=== PATIENT | male | born 1950 | race Caucasian/White ===

== ENCOUNTER → 2021-02-25 13:09 | Outpatient (CLI) | payer MEDICARE, OTHER, SELFPAY ==
--- NOTE | 2021-02-25 13:16 | DI.MRI.S_ITS ---
PROCEDURE: MR SHOULDER RT WO CON INDICATIONS: RIGHT SHOULDER PAIN TECHNIQUE: The patient declined intra-articular gadolinium contrast injection. Therefore, non oblique coronal T2 fast spin echo with fat saturation, oblique sagittal T1 spin echo and T2 fast spin echo with fat saturation, axial T1 spin echo and T2 fast spin echo with fat saturation through the shoulder. COMPARISON: None. FINDINGS: Rotator cuff: Supraspinatus tendinopathy with partial thickness articular and bursal sided tear involving the junction of the critical zone and footprint. No definite full-thickness defect seen. Infraspinatus tendinopathy and mild thickening. Teres minor appears intact. Mild subscapularis tendinopathy and thickening. No atrophy of the rotator cuff muscles seen. Bones and bursae: No bone marrow contusions or fractures. Moderate acromioclavicular joint degeneration. Acromion demonstrates conventional anatomy, without an os acromiale. Moderate glenohumeral osteoarthritis also noted. Mild subacromial-subdeltoid bursitis. 2 mm loose body seen in the axillary pouch. Capsule and soft tissues: Labrum: Extensive posterior labral tear is seen. Posterior subluxed appearance of the humeral head relative to the glenoid raising the possibility of microinstability. There is adjacent segmental sclerosis spurring and cystic change. There is also associated near full-thickness chondral loss. Ill-defined superior labral tear also noted with bucket-handle appearance on image 11/7. Ill-defined blunting of the anteroinferior labrum. Glenohumeral ligaments: Inferior and superior glenohumeral ligaments are intact. Biceps tendon: Long head of the biceps tendon intact. Rotator interval: Normal signal intensity. Coracohumeral ligament: Intact. IMPRESSION: Partial-thickness rotator cuff tear as above. Mild subacromial-subdeltoid bursitis Chronic severe posterior labral tear. Posterior subluxed appearance of the humeral head relative to the glenoid which raises the possibility of microinstability. Additional tear of the superior labral segment with bucket-handle appearance. 2 mm loose body in the axillary pouch. Dictated by: Gopal Majano M.D. on 02/25/2021 at 15:08 Approved by: Gopal Majano M.D. on 02/25/2021 at 15:18
== END ==
PROVIDERS: Family Provider Internal Medicine; PCP Internal Medicine; Referring Provider Pain Medicine Pain Medicine; Visit Provider Pain Medicine Pain Medicine
DX: M25.511 Pain in right shoulder (principal); M75.111 Incomplete rotator cuff tear or rupture of right shoulder, not specified as traumatic; M75.51 Bursitis of right shoulder; S43.491A Other sprain of right shoulder joint, initial encounter
CPT/HCPCS: 73221

== ENCOUNTER → 2021-08-21 14:08 | Outpatient (CLI) | payer MEDICARE, SELFPAY ==
[2021-08-21 14:55] LABS: Add Manual Diff / Slide Review NO; Basophils Absolute Auto 100 /uL (0-100); Basophils Percent Auto 0.8 % (0-2); Eosinophils Absolute Auto 100 /uL (0-450); Eosinophils Percent Auto 1.1 % (2-4); Hematocrit 44.5 % (41-53); Hemoglobin 15.6 g/dL (13.5-17.5); Lymphocytes Absolute Auto 1300 /uL (1100-4500); Lymphocytes Percent Auto 18.2 % (25-40); Mean Corpuscular Hemoglobin 30.5 PG (26-34); Mean Corpuscular Volume 87.1 fL (80-100); Monocytes Absolute Auto 600 /uL (0-900); Monocytes Percent Auto 9.1 % (3-14); Neutrophils Absolute Auto 5000 /uL (1500-7000); Neutrophils Percent Auto 70.8 % (50-75); Platelet Count 152 X10^3/uL (150-400); Red Blood Cell Count 5.11 X10^6/uL (4.5-5.9); White Blood Cell Count 7.1 X10^3/uL (4.5-11.0)
[2021-08-21 15:10] LABS: BUN Creatinine Ratio 21.4 (6-22); Blood Urea Nitrogen 18 mg/dL (9-20); Calcium 9.3 mg/dL (8.4-10.2); Carbon Dioxide 26 mmol/L (22-32); Chloride 106 mmol/L (98-107); Estimated Glomerular Filt Rate > 60 mL/min (>60); Glucose 107 mg/dL (80-110); HEMOLYSIS 42 (0-50); Potassium 4.5 mmol/L (3.4-5.1); Sodium 141 mmol/L (137-145)
== END ==
LOC: LAB 14:17 → RAD 14:24
PROVIDERS: Family Provider Internal Medicine; PCP Internal Medicine; Referring Provider Orthopaedic Surgery; Visit Provider Orthopaedic Surgery
DX: Z01.818 Encounter for other preprocedural examination (principal); Z01.812 Encounter for preprocedural laboratory examination; R73.9 Hyperglycemia, unspecified; M25.511 Pain in right shoulder
CPT/HCPCS: 36415; 80048; 83036; 85025; 93005

== ENCOUNTER → 2021-09-09 11:43 | Outpatient (CLI) | payer MEDICARE, SELFPAY ==
[2021-09-09 15:39] LABS: COVID19 -Nasal RAPID Negative (Negative)
== END ==
PROVIDERS: Family Provider Internal Medicine; PCP Internal Medicine; Visit Provider Family Medicine Sleep Medicine
DX: Z20.822 Contact with and (suspected) exposure to COVID-19 (principal)
CPT/HCPCS: 87635; C9803

== ENCOUNTER 2021-09-11 10:47 | Day surgery (SDC) | payer MEDICARE, SELFPAY ==
[2021-09-04 13:53] VITALS: BMI 36.3
[2021-09-11] VITALS (16 sets, daily range): BP systolic 115–160; BP diastolic 67–92; PULSE 66–94; RESP 10–17; TEMP 35.9–36.6; O2SAT 90–98; BMI 36.3
--- NOTE | 2021-09-11 06:00 | DI.RAD.S_ITS ---
PROCEDURE: XR SHOULDER RT 1V INDICATIONS: prosthesis placement TECHNIQUE: 2 views of the shoulder were acquired. COMPARISON: [facility] [place], [place], XR SHOULDER 2+ VIEWS RIGHT, 09/03/2021, 16:27. FINDINGS: Bones: Expected postoperative alignment of right shoulder arthroplasty. No periprosthetic fractures or evidence of loosening/infection. Soft tissues: Adjacent soft tissue swelling and postsurgical gas. IMPRESSION: Expected immediate postoperative appearance of right shoulder arthroplasty. Dictated by: Flaco ARCHER Interpreted: Nicki Milian MD on 09/11/2021 at 16:18 Transcribed by: AFTAB on 09/11/2021 at 16:18 Approved by: Nicki Milian M.D. on 09/11/2021 at 17:11
[2021-09-11] MEDS: ACETAMINOPHEN 325 MG TABLET 975 MG PO (12:24)
[2021-09-11] MEDS: PREGABALIN 75 MG CAPSULE PO (12:24)
[2021-09-11] MEDS: CELECOXIB 200 MG CAPSULE PO (12:27)
[2021-09-11] MEDS: LACTATED RINGERS 1,000 ML 84 ML IV (12:39)
--- NOTE | 2021-09-11 12:50 | PM.PREOP ---
Pre-operative Note COVID-19 COVID-19 status: Negative Result date/Date tested (Pos, Neg/Pending): 09/09/21 Interval Note History & Physical reviewed/Exam performed by Physician: Yes Changes to H&P: No
[2021-09-11] MEDS: CEFAZOLIN 2 GM/20 ML SYRINGE IV (14:06)
[2021-09-11] MEDS: TRANEXAMIC ACID 1,000 MG VIAL 1000 MG INJ (14:07)
--- NOTE | 2021-09-11 14:30 | SUR.OPER ---
Beach chair with Kelsien/El shoulder positioner. Lower body on padded OR bed. Head in foam padded head cradle, secured with straps. Non-operative arm secured <90 degrees abduction. Torso taped padded with towel, 2x Pillow under knees. Safety belt at thigh. Cloth tape over blanket over lower legs. Tape across lower legs. As directed and approved by surgeon. Neck alignment approved by anesthesia.
[2021-09-11] MEDS: BUPIVACAINE 0.5% (PF) 30 ML, EPINEPHrine 0.15 MG INJ (14:43)
[2021-09-11] MEDS: THROMBIN (RECOMBINANT) 5,000 UNIT VIAL 5000 UNIT TOP (14:44)
--- NOTE | 2021-09-11 16:00 | PM.OP.1 ---
Operative Date/Time/Diagnoses Date of procedure: 09/11/21 Time of procedure: 16:01 Pre-op diagnosis: Right shoulder osteoarthritis Post-op diagnosis: same Procedure & Clinicians Procedure: Right total shoulder replacement Same procedure as scheduled: Yes Indications: The patient has had progressively worsening right shoulder pain with radiographic changes consistent with arthritis. Non-operative management has failed and the patient has requested total shoulder replacement. The risks, benefits and alternatives to surgery were discussed with the patient prior to proceeding. Risks discussed included, but were not limited to, failure to relieve pain, stiffness, infection, nerve damage, deep venous thrombosis, pulmonary embolism, stroke, coma, heart attack, permanent paralysis and , as well as the potential need for eventual revision of the prosthetic. Surgeon: Yemi Jena Engineering Team Supervisor: Peter Zimmerman Click Yes if Unassisted: No Anesthesia Type: General, Peripheral nerve block and Local Operative Notes Findings: Moderately severe osteoarthritis of the glenohumeral joint with small humeral osteophyte. Complete bone loss on the humeral head. Closure Type: primary Specimen(s): none sent Prosthetic devices, grafts, tissues, transplants, or devices: Implants used in this procedure were manufactured by the [employer] and included a canal sparing total shoulder prosthetic with a 54 mm all polyethylene pegged glenoid, a size 3 porous-coated humeral stem and a 54 mm x 20 mm humeral head with neutral neck. In addition an Arthrex speed bridge closure system was used. Applied: implant(s) Estimated Blood Loss (mL): 150 Blood products transfused: none Procedure in detail: The patient was seen in the pre-operative area, where the patient identified the right shoulder as the operative site and this was marked with my initials. The patient received pre-operative antibiotics, underwent an interscalene block, and was taken to the operating room and placed on the operative table in the supine position. After satisfactory anesthesia, a full ?time out? was performed. The patient was repositioned in the ?beach chair? position using a dedicated positioner. All pressure points were well padded, and the knees were slightly bent to prevent tension on the sciatic nerves. The right arm was prepared from the fingers to the base of the neck with ChloroPrep in the usual fashion and draped through sterile drapes. An approximately 15 cm incision was created, starting at the clavicle above the coracoid process and extended towards the deltoid insertion. The deltopectoral interval was used to access the shoulder. The cephalic vein was taken medially. A self retaining retractor was placed. The ?three sisters? were identified and cauterized. The axillary nerve was palpated and protected throughout the case. The biceps was released from its groove and tenodesed over the top of the pectoralis major tendon. The subscapularis was released from the lesser tuberosity with a subscapularis peel and tagged for later repair. The shoulder was dislocated and a cutting guide was used for the proximal humeral osteotomy in 30 degrees of retroversion. A trial humeral head was placed to center the guide pin. The collar Reamer was used followed by the central Reamer. The size 3 broach was then placed. A proximal humeral protector was then placed. We then removed the self-retaining retractor and placed retractors to access the glenoid. The subscapularis was released with a ?360 degree release? with care being taken to protect the axillary nerve with the inferior portion of this procedure. The remnant of labrum and biceps stump were removed. The appropriate size reamer was chosen with the glenoid sizer, and the guide pin placed. The glenoid was appropriately reamed. The guide for the peripheral holes was used and the center hole enlarged. The trial glenoid was placed with good stability. We then cemented the final implant into place after irrigating the peg holes and drying them with thrombin-soaked Gelfoam. We returned our attention to the humerus, a trial humeral head was applied and a trial reduction performed. Stability was checked with 50% posterior translation with spontaneous reduction, 45? external rotation at the side with the subscapularis held in the repaired position and 70? of internal rotation in the ?scare tejon position. This was felt to be satisfactory and the appropriate implants were opened. The humeral prosthetic was impacted into the humerus. The humeral head was applied when the stem was still slightly proud and impacted to both seat the head and fully seat the stem. The joint was relocated one final time. The joint was irrigated and the subscapularis repaired using the speed bridge system with 2 anchors placed just below the humeral osteotomy and 2 more laterally. The medial sutures were tied to reinforce the medial row. The top of the subscapularis was closed to the leading edge of the supraspinatus with a figure of 8 #2 TiCron to close the rotator interval. The deltopectoral interval was closed with interrupted 0 Vicryl. The subcutaneous layer was closed with 3-0 Vicryl, and the skin with a running 3-0 V-Lock suture and Dermabond. An Aquacel Ag dressing was applied, the patient?s arm was placed in a sling, and the patient was taken to recovery having tolerated the procedure well. Complications: none Post-operative Condition: stable Disposition: PACU Plan for aftercare: The patient will be maintained on a standard total shoulder replacement protocol with passive range of motion limited to 90 degrees forward flexion, 0 degrees external rotation at the side, 0 degrees abduction and internal rotation to the body. The patient will receive aspirin and sequential compression devices for DVT prophylaxis. The patient will be discharged home when safe for the home environment, likely tomorrow.
[2021-09-11] MEDS: fentaNYL 100 MCG/2 ML INJ IV (16:16)
--- NOTE | 2021-09-11 16:53 | SUR.PHASEI ---
VSS, report called to Yoni Leslie RN. Patient has been sleeping since he was medicated IV. Stable.
[2021-09-11] MEDS: OXYCODONE IR 10 MG TABLET PO ×2 (17:36→23:17)
[2021-09-11] MEDS: LACTATED RINGERS 1,000 ML 100 ML IV (17:39)
[2021-09-11] MEDS: ACETAMINOPHEN 325 MG TABLET 650 MG PO ×2 (18:47→23:18)
--- NOTE | 2021-09-11 19:08 | SUR.PHASEI ---
1700 late entry SN & RN maintained frequent monitoring of the patient's pain level. After the IV medication, he slept for 1/2 hour until we were preparing to transport him to the floor. Stable and comfortable upon transfer.
--- NOTE | 2021-09-11 19:23 | PC.NURSE ---
Pt arrived to the unit from OR around 1700. Pt is slightly sleepy but answers questions fine. Pt is AxOx4, VSS except SpO2 goes down when he asleep.. Pt is now on 2L O2 with NC and pt uses cpap machine at night. Pt c/o pain R shoulder 12/11 so pt recieved Oxy IR 10mg PO with good effect. Pt went to the toiled and voided. No n/v and ate some dinner. Otherwise, no issue. Continue monitor.
[2021-09-11] MEDS: clonazePAM 0.5 MG TABLET 1.5 MG PO (20:44)
[2021-09-11] MEDS: ASPIRIN EC 81 MG TABLET PO (20:44)
[2021-09-11] MEDS: MORPHINE ER 15 MG TABLET PO (20:45)
[2021-09-11] MEDS: DOCUSATE 100 MG CAPSULE PO (20:45)
[2021-09-11] MEDS: ZOLPIDEM 5 MG TABLET PO (20:46)
[2021-09-11] MEDS: IBUPROFEN 400 MG TABLET PO (23:17)
[2021-09-12 00:10] VITALS: BP 148/86; PULSE 93; RESP 17; TEMP 36.1; O2SAT 93
[2021-09-12 03:35] VITALS: BP 126/77; PULSE 75; RESP 16; TEMP 36.3; O2SAT 93
[2021-09-12] MEDS: OXYCODONE IR 10 MG TABLET PO ×2 (03:52→12:49)
[2021-09-12 06:02] LABS: Hematocrit 41.2 % (41-53); Hemoglobin 14.3 g/dL (13.5-17.5)
[2021-09-12 07:45] VITALS: BP 122/65; PULSE 66; RESP 18; TEMP 36.3; O2SAT 91
--- NOTE | 2021-09-12 08:03 | P.DS_ITS ---
History of Present Illness History of Present Illness Date Patient Seen: 09/12/21 Time Patient Seen: 08:03 Chief complaint: RT TSA *OPB* Narrative: Operative Date/Time/Diagnoses Date of procedure: 09/11/21 Time of procedure: 16:01 Pre-op diagnosis: Right shoulder osteoarthritis Post-op diagnosis: same Procedure & Clinicians Procedure: Right total shoulder replacement Same procedure as scheduled: Yes Indications: The patient has had progressively worsening right shoulder pain with radiographic changes consistent with arthritis. Non-operative management has failed and the patient has requested total shoulder replacement. The risks, benefits and alternatives to surgery were discussed with the patient prior to proceeding. Risks discussed included, but were not limited to, failure to relieve pain, stiffness, infection, nerve damage, deep venous thrombosis, pulmonary embolism, stroke, coma, heart attack, permanent paralysis and , as well as the potential need for eventual revision of the prosthetic. Surgeon: Yemi Jean Bale Stacker: Peter Zimmerman Click Yes if Unassisted: No Anesthesia Type: General, Peripheral nerve block and Local Operative Notes Findings: Moderately severe osteoarthritis of the glenohumeral joint with small humeral osteophyte.? Complete bone loss on the humeral head. Closure Type: primary Specimen(s): none sent Prosthetic devices, grafts, tissues, transplants, or devices: Implants used in this procedure were manufactured by the [employer] and included a canal sparing total shoulder prosthetic with a 54 mm all polyethylene pegged glenoid, a size 3 porous-coated humeral stem and a 54 mm x 20 mm humeral head with neutral neck.? In addition an Arthrex speed bridge closure system was used. Applied: implant(s) Estimated Blood Loss (mL): 150 Blood products transfused: none Discharge Providers Provider Discharge Date: 09/12/21 Primary care physician: Rene Wheeler ND Consults: 09/11/21 17:05 Consult to Discharge Planning Routine Comment: Consult to Physical Therapy Evaluate & Treat Comment: Physician Instructions: pendulums, PROM 90 FF, ER 0, IR to body, Abd 0 Discharge provider: Marie Mcleod PA-C Summary Hospital Course Discharge Diagnosis: s/p RIGHT total shoulder arthroplasty Chronic opioid use Hospital Course: Mr Hernandez'john hospital course was unremarkable. On POD# 1 he was sitting up in bed and appeared to be comfortable. He was eating and voiding without difficulty. He wanted to discharge home with his spouse and denied the need for additional help. He was evaluated by PT prior to discharge. Exam Vital Signs (past 8 hours): - 09/12/21 00:10 09/12/21 03:35 09/12/21 07:45 Temperature 97.0 F L 97.4 F L 97.4 F L Pulse Rate 93 H 75 66 Respiratory Rate 17 16 18 Blood Pressure 148/86 H 126/77 122/65 Pulse Oximetry 93 93 91 Oxygen Delivery Method Room Air,CPAP Oxygen Flow Rate 0 Narrative Exam Narrative: Pt has full ROM of wrist and fingers, 5/5 personal lines sales executive strength and hand intrinsics. Brisk capillary refill, sensation to light touch intact throughout arm. Aquacel dressing CDI, sling in place. Objective Labs Result Diagrams: 09/12/21 05:15 Labs: Laboratory Results - last 24 hr 09/12/21 05:15 Hgb 14.3 Hct 41.2 PFSH Medical History (Updated 09/04/21 @ 14:19 by Alice Walter RN) Acid reflux Anxiety BCC (basal cell carcinoma) Depression HTN (hypertension) Melanoma DILMA on CPAP Osteoarthritis Pre-diabetes Prosthetic eye globe SCC (squamous cell carcinoma) Stomach cancer TBI (traumatic brain injury) Surgical History (Updated 09/04/21 @ 14:27 by Alice Walter RN) H/O vasectomy History of surgery (2006) History of surgery (08/2021) History of surgical procedure Hx of abdominal surgery (~2011) Hx of bilateral inguinal hernia repair (05/17/09) Social History household members: spouse Smoking Status: Never smoker alcohol intake: current Discharge Assessment & Plan Assessment and Plan Assessment: s/p RIGHT total shoulder arthroplasty Chronic opioid use Plan of Treatment: Discharge home, multimodal pain control, ASA 81 mg BID for VTE prophylaxis. He tells me today that his pain physician, Dr Houston at [facility], has given him a prescription for one week's worth of oxycodone 10 mg q 4 hours. To prevent multiple provider prescribing, we will allow Dr Houston's office to remain his only narcotic pain medication prescriber. Discharge Plan Discharge Plan Patient Disposition: Home Provider Discharge Comment: Pt already has prescriptions for narcotic pain medication. Discharge orders & Medications Discharge Orders: Discharge (Order); Ordered 09/12/21 Ordered By: Marie Mcleod Prescriptions: New aspirin 81 mg Tablet,Delayed Release (/Ec) 81 mg PO BID Qty: 90 0RF docusate sodium 100 mg Capsule 100 mg PO BID PRN (Reason: constipation) Qty: 60 0RF ibuprofen 400 mg Tablet 400 mg PO Q8HR Qty: 90 1RF hydroxyzine pamoate [Vistaril] 25 mg capsule 25 mg PO QID PRN (Reason: muscle spasm) Qty: 120 0RF Continued clonazepam 0.5 mg Tablet 1.5 mg PO BEDTIME 0RF Rx Instructions: administer 30 minutes before bedtime hydrocodone-acetaminophen 7.5-325 mg Tablet 1 tab PO QID 0RF morphine 15 mg Tablet Extended Release 15 mg PO DAILY PRN (Reason: Pain) 0RF zolpidem 12.5 mg Tablet,Ext Release Multiphase 12.5 mg PO BEDTIME 0RF Follow up/Referrals: Rene Wheeler ARNP [Primary Care Provider] - Yemi Jean MD [Physician] - As previously scheduled (Follow up w/ Dr Jean on 09/24/2021 @ 1300 at [facility] office in [place].) Diet/Activity/Treatments Diet: Diet as Tolerated Activity: Wear sling at all times when up and about. Passive range of motion limited to 90 degrees forward flexion, 0 degrees external rotation at the side, 0 degrees abduction and internal rotation to the body. Cold/Heat Therapy: Ice to shoulder as needed for pain. Skin/Wound/Dressing Care Report to your healthcare provider any signs of infection, such as:: chills, fever, night sweats, unusual drainage and unusual redness Dressing: May shower. Leave Aquacel dressing in place until follow up in office. No bathing or otherwise soaking incision. Call the office if dressing becomes saturated inside. Visit Report/Discharge Packet Instructions: DI for Shoulder Replacement Stand Alone Forms: Surgery Discharge Discharge Data Primary Care Provider: Rene Wheeler Attending Provider: Yemi Jean Quality VTE Deep Vein Thrombosis/Pulmonary Embolism Present on Admission: No
[2021-09-12] MEDS: ASPIRIN EC 81 MG TABLET PO (08:19)
[2021-09-12] MEDS: MORPHINE ER 15 MG TABLET PO (08:19)
[2021-09-12] MEDS: DOCUSATE 100 MG CAPSULE PO (08:19)
[2021-09-12] MEDS: SODIUM CHLORIDE 0.9% FLUSH 10 ML IV (08:20)
--- NOTE | 2021-09-12 09:45 | PC.NURSE ---
Pt is AxOx4, SBA and VSS. Today Post Op Day 1, pt had R shoulder replacement surgery yesterday. pt slept well and eating well. Pain is controlled well with his routine MS ER 15 PO. Pt is voiding well, no tele. Pt ate breakfast and now ready to d/c.
--- NOTE | 2021-09-12 10:45 | PT.IIE ---
Current Diagnoses Primary osteoarthritis, right shoulder (09/11/21) Surgery Performed Operation Date: 09/11/21 12:30 Actual Procedures p Total Shoulder Arthroplasty(Right) - Yemi Jean MD Medical History (Last Updated 09/04/21 @ 14:19 by Alice Walter RN) Acid reflux Anxiety BCC (basal cell carcinoma) Depression HTN (hypertension) Melanoma DILMA on CPAP Osteoarthritis Pre-diabetes Prosthetic eye globe SCC (squamous cell carcinoma) Stomach cancer TBI (traumatic brain injury) Physical Therapy Inpatient Evaluation/Re-Eval M1 PT/OT-IP Prior Functional Status Start: 09/12/21 10:33 Freq: Status: Active Protocol: Document 09/12/21 10:34 BC (Rec: 09/12/21 10:45 [id number]) Medical Review Prior Functional Status Medical History Reviewed Yes Mobility and Gait Independent Activities of Daily Living and IADL's Independent Prior Functional Level (Other details) Lives with spouse. Pt is retired mechanical systems design engineer. States he has a hx of a severe TBI ~30 years ago and LBP. Social History Household Members spouse Living Arrangements House Number of Floors (Floors) One Floor Number of Stairs To Enter/Railing? 3-4 bilateral railing Home Equipment Straight Cane Employment Status Retired M2 PT-IP Current Condition Start: 09/12/21 10:33 Freq: Status: Active Protocol: Document 09/12/21 10:34 BC (Rec: 09/12/21 10:45 [id number]) Physical Therapy Current Condition Current Condition Evaluation Date 09/12/21 Treatment Diagnosis TSA; impaired R shoulder ROM and strength Onset Date 09/11/21 M3 PT-IP Subjective Start: 09/12/21 10:33 Freq: Status: Active Protocol: Document 09/12/21 10:34 BC (Rec: 09/12/21 10:45 [id number]) Subjective Physical Therapy Visit Type Type Initial Evaluation Visit Start Time 09:30 Visit Stop Time 10:00 Total Visit Minutes 29 Physical Therapy Visit Comments Patient Comments States pain mgmt is much better than when he first came out of surgery Patient Goals Pt would like to go home today . Therapy Pain Assessment Pain When Pain Assessed During Mobility Pain Present Pain Present Pain Reported Location Right Shoulder Intensity 4 Scale Used Numeric (0 - 10) Description Acute Pain Management Techniques Re-positioning M4 PT-IP Mobility and Gait Start: 09/12/21 10:33 Freq: Status: Active Protocol: Document 09/12/21 10:34 (Rec: 09/12/21 10:45 [id number]) PT-Bed Mobility Assessment Rolling Type of Rolling Log Rolling Level of Assist Independent Supine to Sit Supine to Sit Independent Sit to Supine Sit to Supine Independent Scooting Scooting to Edge of Bed Independent Scooting Up and Down in Bed Independent PT-Transfer Assessment Sit to and From Stand Sit to and from Stand Independent Equipment Transfer Assistive Device Gait Belt Transfers Transfer Destination Bed,Toilet Transfer Technique Stand Pivot Transfer Ability Level of Assist Independent Gait Assessment Gait Gait Assistance Required: Independent,Standby Assistance Distance (Feet) 400 Able to Maintain Weight Bearing Status Yes During Gait Assistive Devices Assistive Device Gait Belt Gait Deviations General Gait Pattern Within Normal Limits Comments Gait Comments Sling on RUE donned throughout transfers/ambulation/bed mobility Stair Climbing Assessment Evaluation Level of Assist On Stairs Standby Assistance Devices Stair Climbing Assistive Devices Left Railing Technique/Endurance Stair Climbing Direction Ascend and Descend Stair Climbing Technique Step Over Step Number of Steps Climbed 4 Query Text: Comments Stair Climbing Comments NA PT-Balance Assessment Sitting Balance and Reactions Static Sitting Balance Ability Normal Dynamic Sitting Balance Ability Normal Standing Balance and Reactions Static Standing Balance Ability Good Dynamic Standing Balance Ability Good Device Used none M5 PT-IP Objective Assessments Start: 09/12/21 10:33 Freq: Status: Active Protocol: Document 09/12/21 10:34 (Rec: 09/12/21 10:45 [id number]) Orientation Orientation/Cognition Level of Alertness Alert Orientation Name,Date,Place,Situation Gross Range of Motion Upper Extremity ROM Assessment Right Impaired Impairments R TSA Lower Extremity ROM Assessment Within Functional Limits Strength Upper Extremity Strength Assessment Right Impaired Shoulder not assessed Elbow at least 3/5 Wrist at least 3/5 Hand at least 3/5 Lower Extremity Strength Assessment Within Functional Limits Coordination Assessment Gross Coordination Gross Coordination WNL Sensation Assessment Sensation Gross Sensation WNL Muscle Tone Muscle Tone WNL Yes M6 PT-IP Treatment Start: 09/12/21 10:33 Freq: Status: Active Protocol: Document 09/12/21 10:34 (Rec: 09/12/21 10:45 [id number]) Physical Therapy Treatment Exercises Exercises Shoulder Pendulums,Elbow Flexion/Extension,Wrist ROM, Hand ROM Education Education Provided Precautions,Weight Bearing Status,Post-Op Packet,Safety Brace Education [place],Patient Other Treatments Other Treatment Performed Demo'd and educated Pt on don/ doff of RUE sling and how spouse can assist. Reviewed post op packet. Answered questions regarding bathing in tub vs shower; don/doff jacket; button up shirts vs tight neck shirts; and HEP. Pendulum exercise more challenging due to hx of LBP but Pt is able to replicate with support on taller counter top. M7 PT-IP Assessment and Plan Start: 09/12/21 10:33 Freq: Status: Active Protocol: Document 09/12/21 10:34 BC (Rec: 09/12/21 10:45 BC [id number]) PT Summary Assessment and Plan Potential Rehabilitation Potential Excellent Status of Condition at Evaluation Stable Summary Impairments Pain,ROM,Strength Progress Towards Goals Progressing Toward Goals Assessment Summary Pt admitted for R TSA. He reports a prior hx of TBI and LBP. He is independent at [facility] and lives with spouse. Pt states spouse will be able to assist with ADLs/support. CLOF : Pt is demonstrating grossly independent mobility in room, bed transfers, stairs and bathroom needs. He needs assist to don/doff sling and clothing. Education provided today on assist at home, precautions for RUE, sling mgmt, and HEP. Recommend d/c home with to assist and OPPT. Pt remained in bed resting with call light after session. Anticipate 1 more PT session unless he is d/c prior . Goals Other Goals Review HEP exercises in PM. Pt to direct don/doff of sling to (if present) or PT. Days to Meet Goals 1 Frequency of Treatment Frequency Of Treatment Twice a Day Treatment Plan Physical Therapy Treatment Plan Therapeutic Exercise,Post Op Education,Discharge Planning Precautions Shoulder Precautions Sling,PROM,Internal Rotation to Body,No External Rotation, No Abduction,Forward Flexion to 90 degrees,Pendulums Weight Bearing Status Weight Bearing Status Non-Weight Bearing Allowed Weight Bearing Amount (enter % RUE or #) (%) Recommendations To Nursing Amount of Assist Needed Independent,Standby Assistance Discharge Recommendations PT Discharge Recommendations Home with Assistance, Outpatient PT Transportation Needs at Discharge Private Vehicle
--- NOTE | 2021-09-12 12:30 | CM.IDA ---
Initial DCP Assessment Note Pt is a 71 yo male, resident of [place], now POD#1 from [facility] total shoulder surgery by Dr Jean PCP: Rene Wheeler Payer: [facility] Reviewed chart, pt discussed in multidisciplinary rounds this morning. Therapy has cleared pt for return home w/family to assist and pt has planned for home, DC order from Ortho has already been initiated this morning. No needs expected from DC planning team although will remain available in case this changes today. RONA Montes
[2021-09-12] MEDS: ACETAMINOPHEN 325 MG TABLET 650 MG PO (12:49)
== END 2021-09-12 14:12 | disposition home or self-care (01) ==
LOC: OR 10:49 → AC 10:49
PROVIDERS: Family Provider Internal Medicine; PCP Registered Nurse; Referring Provider Orthopaedic Surgery; Visit Provider Orthopaedic Surgery
PROC: 0RQJ0ZZ Repair Right Shoulder Joint, Open Approach (ICD-10-PCS; CPT 23472; principal; 2021-09-11 12:30)
DX: M19.011 Primary osteoarthritis, right shoulder (principal); R73.03 Prediabetes; I10 Essential (primary) hypertension; Z87.820 Personal history of traumatic brain injury; G47.30 Sleep apnea, unspecified
CPT/HCPCS: 23472; 36415; 73020; 85014; 85018; 97161; 97530; C1776; J0171; J0690; J1100; J2250; J2405; J2704; J3010